=== PATIENT | male | born 1970 | race Hispanic/Latino ===

== ENCOUNTER 2021-08-26 17:37 | Outpatient (CLI) | payer BC ==
[2021-08-26 18:51] LABS: Anion Gap 17 mmol/L (10-20); BUN (Urea Nitrogen) 19 mg/dL (8.9-20.6); Calc. Creatinine Clearance 0 mL/min (70-130); Calcium 9.3 mg/dL (7.8-10.44); Carbon Dioxide 19 mmol/L (22-29); Chloride 104 mmol/L (98-107); Glucose 198 mg/dL (70-105); Potassium 3.9 mmol/L (3.5-5.1); Sodium 136 mmol/L (136-145)
[2021-08-28 00:06] LABS: SARS-CoV-2 PCR by NAA Not Detected (NotDetected)
== END 2021-08-26 17:38 | disposition home or self-care (01) ==
LOC: CSHLAB 17:37
PROVIDERS: ATTEND Otolaryngology Otolaryngic Allergy
DX: Z01.818 Encounter for other preprocedural examination (principal); Z20.822 Contact with and (suspected) exposure to COVID-19; G47.33 Obstructive sleep apnea (adult) (pediatric)
CPT/HCPCS: 80048; 93005; 93010; U0003; U0005

== ENCOUNTER 2021-08-31 06:42 | Day surgery (SDC) | payer BC ==
[2021-08-20 15:55] VITALS: BMI 34.5
[2021-08-31] MEDS ORDERED: Lidocaine 1% MPF 2 ML VIAL ONE (07:05)
[2021-08-31] MEDS ORDERED: PROPOFOL 40 ML ONE (08:09)
[2021-08-31] MEDS ORDERED: Lidocaine 1% PF 5 ML VIAL ONE (08:11)
== END 2021-08-31 09:25 | disposition home or self-care (01) ==
LOC: CSHSDC 06:42
PROVIDERS: ATTEND Otolaryngology Otolaryngic Allergy
DX: G47.33 Obstructive sleep apnea (adult) (pediatric) (principal); J34.2 Deviated nasal septum; J34.3 Hypertrophy of nasal turbinates; Z86.718 Personal history of other venous thrombosis and embolism; E11.9 Type 2 diabetes mellitus without complications
CPT/HCPCS: J2704

== ENCOUNTER 2021-11-18 17:18 | Outpatient (CLI) | payer BC | END 2021-11-18 17:19 | disposition home or self-care (01) | LOC: CSHLAB 17:18 | PROVIDERS: ATTEND Otolaryngology Otolaryngic Allergy | DX: Z01.818 Encounter for other preprocedural examination (principal); Z20.822 Contact with and (suspected) exposure to COVID-19; G47.33 Obstructive sleep apnea (adult) (pediatric); Z86.718 Personal history of other venous thrombosis and embolism; J34.3 Hypertrophy of nasal turbinates; J34.2 Deviated nasal septum | CPT/HCPCS: 93005; 93010; U0003; U0005 ==

== ENCOUNTER 2021-11-23 06:11 | Day surgery (SDC) | payer BC ==
[2021-11-18 13:56] VITALS: BMI 31.7
[2021-11-23] MEDS ORDERED: Lidocaine 1% MPF 2 ML VIAL ONE (06:28)
[2021-11-23] MEDS ORDERED: Phenylephrine 40 MG/NS 250 ML 250 ML ONE (06:32)
[2021-11-23] MEDS ORDERED: Propofol 1,000 MG/100 ML VIAL IV ONE ×2 (06:32)
[2021-11-23] MEDS ORDERED: Dexamethasone 20 MG/5 ML VIAL ONE (06:44)
[2021-11-23] MEDS ORDERED: Fentanyl 250 MCG/5 ML VIAL ONE (06:44)
[2021-11-23] MEDS ORDERED: Rocuronium Bromide 10 MG/ML (10ML VIAL) ONE (06:44)
[2021-11-23] MEDS ORDERED: Midazolam HCl 2 mg/2 ml Vial ONE (06:44)
[2021-11-23] MEDS ORDERED: Lidocaine 1% PF 5 ML VIAL ONE (06:44)
[2021-11-23] MEDS ORDERED: Ondansetron PF 4 MG/2 ML Vial ONE (06:44)
[2021-11-23] MEDS ORDERED: PROPOFOL 20 ML ONE (06:44)
[2021-11-23] MEDS ORDERED: Lidocaine 1% w/Epinephrine 1:100K 20 ML VIAL ONE (06:52)
[2021-11-23] MEDS ORDERED: EPINEPHrine 1 MG/ML AMP ONE (06:52)
[2021-11-23] MEDS ORDERED: CEFAZOLIN 1 GM VIAL ONE (06:53)
[2021-11-23] MEDS ORDERED: Fentanyl 100 MCG/2 ML VIAL ONE (10:11)
== END 2021-11-23 11:10 | disposition home or self-care (01) ==
LOC: CSHSDC 06:11
PROVIDERS: ATTEND Otolaryngology Otolaryngic Allergy
DX: G47.33 Obstructive sleep apnea (adult) (pediatric) (principal); Z86.718 Personal history of other venous thrombosis and embolism; E11.9 Type 2 diabetes mellitus without complications; J34.3 Hypertrophy of nasal turbinates; J34.2 Deviated nasal septum
CPT/HCPCS: 36416; 70360; 93005; 93010; C1820; C1898; J0171; J0690; J1100; J2250; J2405; J2704; J3010

== ENCOUNTER 2024-06-07 08:37 | Outpatient (CLI) | payer BC | END 2024-06-07 08:38 | disposition home or self-care (01) | LOC: CSHSLEEP 08:37 | PROVIDERS: ATTEND Internal Medicine Critical Care Medicine | DX: G47.33 Obstructive sleep apnea (adult) (pediatric) (principal); Z96.82 Presence of neurostimulator | CPT/HCPCS: 95810; 95977 ==